=== PATIENT | male | born 1970 | race Caucasian/White ===

== ENCOUNTER 2024-02-21 09:08 | Outpatient (CLI) | payer BC, SELFPAY | END 2024-02-21 09:09 | disposition home or self-care (01) | PROVIDERS: PCP Emergency Medicine; Visit Provider Emergency Medicine | DX: Z13.6 Encounter for screening for cardiovascular disorders (principal); Z13.1 Encounter for screening for diabetes mellitus; Z12.5 Encounter for screening for malignant neoplasm of prostate | CPT/HCPCS: 80061; 82947; G0103 ==

== ENCOUNTER 2024-03-27 14:09 | Outpatient (CLI) | payer BC, SELFPAY ==
[2024-03-27 15:05] VITALS: BP 135/86; PULSE 67; RESP 16; O2SAT 97
[2024-03-27 15:38] VITALS: BP 120/86; PULSE 79; RESP 16
--- NOTE | 2024-03-27 19:02 | W.PM.STED ---
Stress Test Note Date Date of test: 03/27/24 Providers Primary care provider: Jose Manuel Sanchez Stress test physician: Anders Campoverde Stress Test Note Stress test ordered: Stress Echo Indication for test: Shortness of breath on exertion Results discussion: This very pleasant gentleman presents for the above test after discussion the risks benefits and side effects he would like to proceed, cardiac stress test medical history form is reviewed. Pretest EKG shows normal sinus rhythm, there is no acute ST wave changes ventricular rate is 64 the blood pressure 135/85. Standard Sarthak protocol is employed over a time course of 10 minutes 2nd, he achieved a metabolic equivalent of 11.7 Mets, with a maximum heart rate of 151, which is 108% of the target, his maximum blood pressure was 160 on 80. He did develop some shortness of breath and fatigue but did not develop any chest pain, there is no appreciable ST wave changes suggestive of ischemia, and no evidence of any dysrhythmias. He recovered normally. Impression: Negative electrographic portion of stress echo Follow up suggested: Await echo images which will be read by Cardiology clinical correlation with this will be negative, but overall the electrographic portion of this test is negative. His condition was felt to be good
== END 2024-03-27 15:54 | disposition home or self-care (01) ==
LOC: STRESS 14:10
PROVIDERS: PCP Family Medicine; Visit Provider Family Medicine
DX: R06.09 Other forms of dyspnea (principal)
CPT/HCPCS: 93016; 93325; 93351

== ENCOUNTER 2024-04-19 16:21 | Outpatient (CLI) | payer BC, SELFPAY | END 2024-04-19 16:22 | disposition home or self-care (01) | LOC: CT 16:22 | PROVIDERS: PCP Family Medicine; Visit Provider Internal Medicine Cardiovascular Disease | DX: R06.02 Shortness of breath (principal); I71.21 Aneurysm of the ascending aorta, without rupture; J98.11 Atelectasis | CPT/HCPCS: 71275; Q9967 ==

== ENCOUNTER 2024-12-05 14:31 | Outpatient (CLI) | payer BC, SELFPAY | END 2024-12-05 14:32 | disposition home or self-care (01) | LOC: LKVREF 14:32 | PROVIDERS: PCP Family Medicine; Visit Provider Otolaryngology | DX: R06.00 Dyspnea, unspecified (principal); R06.89 Other abnormalities of breathing | CPT/HCPCS: 83036; 83516 ==

== ENCOUNTER 2024-12-17 08:21 | Outpatient (CLI) | payer BC, SELFPAY ==
--- NOTE | 2024-12-17 09:00 | CRLHL7_ITS ---
For Patients: As a result of the Century Cures Act, medical imaging exams and procedure reports are released immediately into your electronic medical record. You may view this report before your referring provider. If you have questions, please contact your health care provider. INDICATION: Dyspnea, possible subglottic stenosis or hemangioma TECHNIQUE: CT chest with 75 mL Isovue 370 IV contrast. COMPARISON: CT chest PE: 04/19/2024 FINDINGS: Lungs and pleura: No suspicious nodules. No focal consolidation, pleural effusion, or pneumothorax. Heart and vasculature: Heart size is normal. Dilated ascending thoracic aorta to 4.5 cm similar to prior. Main pulmonary artery normal in caliber. Central airways are patent. No airway masses or significant subglottic narrowing. Lymph nodes/mediastinum: No enlarged lymph nodes by size criteria. Lower neck: Unremarkable. The vocal folds are adducted. Chest wall: No masses. Upper abdomen: Unremarkable. No acute or significant abnormality. Bones: No aggressive osseous lesions. IMPRESSION: 1. Central airways widely patent. No evidence of subglottic stenosis or central airway masses. 2. Aneurysmal ascending thoracic aorta to 4.5 cm. Please note that all CT scans at this facility use dose modulation, iterative reconstruction, and/or weight-based dosing when appropriate to reduce radiation dose to as low as reasonably achievable. Dictated by Jamal Santana MD @ 12/17/2024 9:18:11 AM (Electronically Signed)
== END 2024-12-17 08:22 | disposition home or self-care (01) ==
LOC: CT 08:22
PROVIDERS: PCP Family Medicine; Visit Provider Otolaryngology
DX: R06.00 Dyspnea, unspecified (principal); I71.21 Aneurysm of the ascending aorta, without rupture; R06.89 Other abnormalities of breathing
CPT/HCPCS: 71260; Q9967